=== PATIENT | female | born 1965 | race Caucasian/White ===

== ENCOUNTER 2016-11-27 17:50 | Emergency (ER) | payer OTHER ==
[~2016-11-27] VITALS: Ht 167.6 cm; Wt 84.1 kg
[2016-11-27 18:08] VITALS: BP 145/107; PULSE 85; O2SAT 99
--- NOTE | 2016-11-27 18:12 | ED.REPORT ---
HPI-General Illness Date of Service Nov 27, 2016 ED Provider: Alec Catherine MD A 51 year old female with a history of GERD, hypertension and anxiety presents to the ED complaining of upper abdominal pain. The pt describes the pain as a "tight squeezing" that began while she was at work earlier today. This pain was accompanied by back tightness, bilateral hand numbness and difficulty breathing , though she believes that the difficulty breathing was secondary to anxiety. The pain resolved temporarily, but returned some time later and has persisted since. The pain is not positional and the pt denies hematochezia, nausea and vomiting. The pt states that this does not feel like acid reflux pain and believes that her symptoms may be due to a panic attack because she has experienced family stress recently. The pt denies a history of blood clots. Nursing Notes Stated Complaint: NUMBNESS IN HANDS,TIGHTNESS AND PAIN IN ABD Chief Complaint: Chest Pain Nursing Notes Reviewed: Yes Allergies: Coded Allergies: trazodone (Verified Adverse Reaction, Intermediate, 11/27/16) restless leg General Time Seen by MD: 18:11 Chief Complaint Abdominal pain Hx Obtained From: Patient Arrived By: Walk-in Sudden in Onset?: Yes Onset Occurred: 1 - 4 hours ago Recent Healthcare: No recent doctor visit, No recent hospitalization Similar Sx Previous: No Past Medical History Past Medical History GERD anxiety hypertension Past Surgical History none reported Smoking History Unknown if Ever Smoker Social History Other Social History: Good social support Ambulatory Status Independent Review of Systems difficulty breathing Full Review of Systems Respiratory: Denies: Non-productive cough GI: Reports: Abdominal pain, Denies: Hematochezia, Nausea, Vomiting Musculoskeletal: Reports: Back pain, Denies: Neck pain Skin: Denies Rash Neurologic: Reports: Numbness Psychiatric: Reports: Stress Complete sys rev & neg: except as marked. Physical Exam Vital Signs Vital Signs Date Time Temp Pulse Resp B/P Pulse Ox O2 Delivery O2 Flow Rate FiO2 11/27/16 22:08 36.8 73 16 132/82 97 Room Air 11/27/16 19:46 37.0 89 17 119/71 97 Room Air 11/27/16 18:08 36.8 85 145/107 99 Room Air Initial VS: Reviewed General/Constitutional: Awake, Alert Head / Eyes: Atraumatic, Normocephalic, PERRL, EOMI ENT: Atraumatic, Airway patent, Mucous membranes moist Neck: Atraumatic, Supple, Full range of motion Respiratory / Chest: Atraumatic, Breath sounds NL, Breath sounds = bilat, No respiratory distress Cardiovascular: Regular rhythm, Heart sounds NL Heart Rate / Rhythm: Positive: Tachycardia (mild) Abdomen: Atraumatic, Soft mild epigastric tenderness Back: Atraumatic, Full range of motion Upper Extremities Upper Extremity / MS: Atraumatic, Full range of motion Lower Extremity / Pelvis / MS: Atraumatic, Full range of motion Skin: Atraumatic, Color NL, No rash, Warm, Dry Neurologic: Oriented X3, Speech NL, No motor deficits, No sensory deficits Psychiatric: Affect NL, Mood NL Interpretation & Diagnostics Lab Results Interpretation Result Diagram: 11/27/16184111/27/161841 Test 11/27/16 18:42 11/27/16 20:41 11/27/16 20:45 White Blood Count 10.4th/mm3 (3.8-10.1) Red Blood Count 4.36mil/mm3 (3.90-5.20) Hemoglobin 14.4g/dL (12.0-15.6) Hematocrit 41.4% (35.0-46.0) Mean Corpuscular Volume 95.0fL (81-100) Mean Corpuscular Hemoglobin 33.0pg (27.0-35.0) Mean Corpuscular Hemoglobin Concent 34.8% (32.0-37.0) Red Cell Distribution Width 12.9% (12.3-15.4) Platelet Count 242bil/L (150-400) Neutrophils (%) (Auto) 66.4% (40-74) Lymphocytes (%) (Auto) 25.7% (14-46) Monocytes (%) (Auto) 6.0% (4-12) Eosinophils (%) (Auto) 1.2% (0-5) Basophils (%) (Auto) 0.4% (0-3) D-Dimer < 0.50mg/L FEU (<0.50) Sodium Level 140mEq/L (134-144) Potassium Level 3.2mEq/L (3.5-5.2) Chloride Level 98mEq/L (97-108) Carbon Dioxide Level 24mmol/L (18-29) Blood Urea Nitrogen 12mg/dL (6-24) Creatinine 0.61mg/dL (0.57-1.00) Estimat Glomerular Filtration Rate 148mL/min (>59) Glucose Level 156mg/dL (60-99) Calcium Level 9.5mg/dL (8.5-10.1) Magnesium Level 1.6mg/dL (1.6-2.6) Total Bilirubin 0.7mg/dL (0.0-1.2) Aspartate Amino Transf (AST/SGOT) 34U/L (0-50) Alanine Aminotransferase (ALT/SGPT) 31U/L (0-32) Alkaline Phosphatase 88U/L (25-150) Total Protein 7.2g/dL (6.4-8.4) Albumin 4.3g/dL (3.4-5.0) Lipase 53U/L (13-60) Urine Color Yellow (YELLOW) Urine Appearance Clear (CLEAR,HAZY) Urine pH 5.5 (5.0-8.0) Urine Specific [place] 1.020 (1.003-1.035) Urine Protein Negativemg/dL (NEG,TRACE) Urine Glucose (UA) Negativemg/dL (NEGATIVE) Urine Ketones Tracemg/dL (NEGATIVE) Urine Occult Blood Negative (NEGATIVE) Urine Nitrite Negative (NEGATIVE) Urine Bilirubin Negative (NEGATIVE) Urine Urobilinogen Normalmg/dL (NORMAL) Urine Leukocyte Esterase Negative (NEGATIVE) Urine RBC 0-2/hpf (0-2) Urine WBC 0-5/hpf (0-5) Urine Epithelial Cells Few/hpf (NONE-MOD) Urine Crystals None seen (NONE SEEN) Urine Bacteria None/hpf (NONE-FEW) Urine Hyaline Casts None/lpf (NONE) Urine Granular Casts None seen (NONE SEEN) Urine Waxy Casts None seen (NONE SEEN) Urine Red Blood Cell Casts None seen (NONE SEEN) Urine White Blood Cell Casts None seen (NONE SEEN) Urine Mucus None seen (None Seen) Urine Trichomonas None seen (NONE SEEN) Urine Yeast None (NONE SEEN) Urinalysis Comment None Urine Culture Reflexed Not indicated Troponin T < 0.010ug/L (0.0-0.011) ECG Interpretation ECG Interpretation: normal sinus rhythm with a rate of 87 RBBB T wave inversions in V1 through V3 no ST changes no previous for comparison Time: 18:29 Interpreted by: ED physician X-Ray Chest Interpretation Chest Xray Interpretation: IMPRESSION: 1. No acute cardiopulmonary disease. Dictated by: Priyank Lopez M.D. on 11/27/2016 at 18:45 Approved by: Priyank Lopez M.D. on 11/27/2016 at 18:45 Interpretation / Wet Read by: Interpret - Radiologist Re-Eval/Medical Decision Med Decision/Clinical Course 51-year-old female history of anxiety and acid reflux presenting with substernal and epigastric squeezing chest pain 1-1/2 hours prior to arrival. Under significant stressors with her fiance dying from a heart attack 2 weeks ago. She reports this is been very stressful. She does have a history of panic attack 20 years ago she is unsure if this is similar not. Her symptoms resolved prior to arrival. Vital signs are stable. Labs are unremarkable. D-dimer is negative. Her troponins are negative 2. No EKG changes. Chest x-ray is clear. I suspect her symptoms were most likely related to anxiety panic attack. She did receive a GI cocktail without any change. Cannot rule out angina though discussed with patient and she would like to be discharged home with follow-up with her primary doctor this week. Given her low risk factors and low heart score think this is reasonable. Patient is advised to return if she has any recurrent chest pain or any other new or worsening symptoms. She may benefit from a stress test as an outpatient. Source of Hx: Old records Time of Eval: 19:30 Patient Status: Condition improved Re-Evaluation/Progress Note: Pt rechecked, who is resting. Lab results are discussed, in addition to the plan for further testing. Time of Eval: 21:51 Patient Status: Condition improved Re-Evaluation/Progress Note: Pt rechecked, whose pain has resolved. The diagnosis and plan for discharge are discussed. The pt understands and agrees with the plan. All questions are addressed at this time. Counseled Regarding: Diagnosis, Lab results, Need for follow-up, When/why to return to ED Discharge & Departure Primary Impression: Non-cardiac chest pain Additional Impression: Anxiety Disposition: Home Discharge Condition All VS Reviewed: Yes Condition: Improved Patient Instructions: Anxiety (ED), Noncardiac Chest Pain (ED) Additional Instructions: Thank you for allowing us to be part of your care. I believe that your symptoms are most likely due to anxiety. Your workup in the emergency room was normal including your EKG and chest x-ray. Your heart enzymes were normal twice. There was no evidence of blood clot in your labs and your pain has resolved. Call your primary care physician to arrange a follow up appointment tomorrow. Return to the emergency department if you develop chest pain, difficulty breathing, fever, nausea, vomiting, or any new or worsening symptoms. Referrals: Kala Dawkins MD (PCP) Scribe Attestation Portions of this note were transcribed by Alexa Evans. I, Dr. Catherine personally performed the history, physical exam and medical decision-making; I reviewed and confirmed the accuracy of the information in the transcribed note.[id number]. copies to: Kala Dawkins MD, Ben M MD Nov 27, 2016 18:12 ALEXA EVANS Nov 27, 2016 18:28
[2016-11-27] MEDS ORDERED: 0.9% Sodium Chloride 1,000 ML IV ONE (18:27)
[2016-11-27] MEDS ORDERED: LidocaineVisc 2%:Antacid 1:1 10 mL Syringe PO ONE (18:30)
[2016-11-27] MEDS ORDERED: Ondansetron 2 mg/mL 2 mL Inj IVPUSH PRN (18:30)
--- NOTE | 2016-11-27 18:48 | DRSVH ---
PROCEDURE: X-RAY CHEST ONE VIEW, PORTABLE ([id number]) INDICATIONS: chest pain TECHNIQUE: One view of the chest was acquired. COMPARISON: None. FINDINGS: Surgical changes and devices: None. Lungs and pleura: No pleural effusions or pneumothorax. Lungs are clear. Mediastinum: Mediastinal contours appear normal. Heart size is normal. Bones and chest wall: No suspicious bony lesions. Overlying soft tissues appear unremarkable. IMPRESSION: 1. No acute cardiopulmonary disease. Dictated by: Priyank Lopez M.D. on 11/27/2016 at 18:45 Approved by: Priyank Lopez M.D. on 11/27/2016 at 18:45
[2016-11-27 18:49] LABS: BASOPHILS % (AUTO) 0.4 % (0-3); EOSINOPHILS % (AUTO) 1.2 % (0-5); NEUTROPHILS % (AUTO) 66.4 % (40-74); Platelet Count 242 bil/L (150-400)
[2016-11-27 19:10] LABS: Magnesium 1.6 mg/dL (1.6-2.6)
[2016-11-27 19:13] LABS: TROPONIN T < 0.010 ug/L (0.0-0.011)
[2016-11-27 19:46] VITALS: BP 119/71; PULSE 89; RESP 17; O2SAT 97
[2016-11-27 20:58] LABS: APPEARANCE,URINE CLEAR (CLEAR,HAZY); COLOR,URINE YELLOW (YELLOW); PH,URINE 5.5 (5.0-8.0)
[2016-11-27 20:59] LABS: OCCULT BLOOD,URINE NEGATIVE (NEGATIVE); UROBILINOGEN,URINE NORMAL (NORMAL)
[2016-11-27 22:08] VITALS: BP 132/82; PULSE 73; RESP 16; O2SAT 97
== END 2016-11-27 22:10 | disposition home or self-care (01) ==
LOC: SED 17:50
DX: R07.89 Other chest pain (principal); F41.9 Anxiety disorder, unspecified; I10 Essential (primary) hypertension; K21.9 Gastro-esophageal reflux disease without esophagitis; Z88.8 Allergy status to other drugs, medicaments and biological substances
CPT/HCPCS: 36415; 71010; 80053; 81000; 83690; 83735; 84484; 85025; 85378; 93005; 96360; 99285; J7030